=== PATIENT | female | born 1965 | race Caucasian/White ===

== ENCOUNTER 2021-10-11 17:28 | Emergency (ER) | payer OTHER ==
[~2021-10-11] VITALS: Ht 170.2 cm; Wt 74.8 kg
[2021-10-11 17:35] VITALS: BP 139/84
--- NOTE | 2021-10-11 17:41 | NUR ---
PT AMB TO BED 3.
--- NOTE | 2021-10-11 18:10 | NUR ---
56 Y/O FEMALE BIB SELF C/O OF CHEST PAIN, THROAT PAIN X 2DAYS. STATED THAT THIS MORNING SHE SUDDENLY FELT LIKE SHE COULDNT BREATH, WAS GIVEN AN INHALER BY HER AND STATED THAT IT "HELPED", SATTING AT 99% ON ROOM AIR, DENIED ANY COUGH, JUST THAT SHE WAS "CLEARING HER THROAT", DENIED ANY FEVER. CHYNA PMH: HDL
--- NOTE | 2021-10-11 18:21 | NUR ---
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
[2021-10-11 18:46] LABS: BASOPHILS % (AUTO) 0.5 % (0.0-2.0); EOSINOPHILS # (AUTO) 0.1 K/uL (0-0.4); EOSINOPHILS % (AUTO) 2.5 % (0.0-4.0); HEMATOCRIT 40.3 % (36-48); LYMPHOCYTES # (AUTO) 2.2 K/uL (2.5-16.5); LYMPHOCYTES % (AUTO) 39.9 % (20.5-51.1); MEAN CORPUSCULAR HEMOGLOBIN 27 pg (27-31); MEAN CORPUSCULAR HGB CONC 32 g/dL (33-37); MEAN CORPUSCULAR VOLUME 82.5 fL (80-94); MONOCYTES # (AUTO) 0.5 K/uL (0.8-1.0); MONOCYTES % (AUTO) 8.5 % (1.7-9.3); NEUTROPHILS # (AUTO) 2.7 K/uL (1.8-7.7); NEUTROPHILS % (AUTO) 48.6 % (42.2-75.2); PLATELET COUNT (AUTO) 236 K/uL (140-450); RED BLOOD CELL COUNT(AUTO) 4.88 MIL/uL (4.20-5.40); RED CELL DISTRIBUTION WIDTH 14.7 % (11.6-13.7); WHITE BLOOD COUNT (AUTO) 5.5 K/uL (4.8-10.8)
[2021-10-11 19:05] LABS: ALBUMIN 3.7 g/dL (3.4-5.0); ANION GAP 7.7 (8-16); CARBON DIOXIDE 30.1 mmol/L (21-32); CREATININE 0.9 mg/dL (0.6-1.3); POTASSIUM 3.8 mmol/L (3.5-5.1); TOTAL BILIRUBIN 0.2 mg/dL (0.0-1.0)
--- NOTE | 2021-10-11 19:14 | NUR ---
Pt report given to MI MCKOY. Transfer of care at this time.
[2021-10-11] MEDS ORDERED: FAMO-90 PO (20:05)
[2021-10-11] MEDS ORDERED: ALBU0.0912 INH (20:05)
[2021-10-11 20:08] VITALS: BP 137/82
== END 2021-10-11 20:08 | disposition home or self-care (01) ==
LOC: MED 17:28
DX: R06.02 Shortness of breath (principal); E78.5 Hyperlipidemia, unspecified; Z79.899 Other long term (current) drug therapy
CPT/HCPCS: 36415; 71045; 80053; 81002; 83880; 84484; 85025; 93005; 99285; Q0092